=== PATIENT | female | born 1980 | race Hispanic/Latino ===

== ENCOUNTER 2023-05-09 14:42 | Outpatient (CLI) | payer BC | END 2023-05-09 14:43 | disposition home or self-care (01) | LOC: SCSMRI 14:42 | PROVIDERS: ATTEND Psychiatry & Neurology Neurology | DX: M51.16 Intervertebral disc disorders with radiculopathy, lumbar region (principal); M48.061 Spinal stenosis, lumbar region without neurogenic claudication | CPT/HCPCS: 72158 ==